=== PATIENT | female | born 1985 | race Caucasian/White ===

== ENCOUNTER 2020-05-08 14:57 | Emergency (ER) | payer OTHER ==
[2020-05-08] MEDS ORDERED: ONDANSETRON ODT 4 MG TABLET TL STA (15:33)
[2020-05-08] MEDS ORDERED: MECLIZINE 12.5 MG TABLET PO STA (15:33)
--- NOTE | 2020-05-08 15:37 | ED Physician Documentation ---
History of Present Illness - Stated complaint Stated Complaint: DIZZINESS - Chief complaint Chief Complaint: Neuro - History obtained from History obtained from: Patient - History of Present Illness Timing: How many days ago (4) Pain level max: 0 Pain level now: 0 - Additonal information Additional information: 34-year-old female presents to the emergency department stating that she has felt dizzy today. She describes it as the room spinning. Worse with movement, better with rest. Also better with her eyes closed. No recent illness. No medication changes. No headache. No chest pain. No shortness of breath. Does have a history of factor V Leiden deficiency. She is on aspirin for this. Denies any possibility of . Review of Systems Constitutional: denies: Fever, Chills Respiratory: denies: Cough GI: denies: Vomiting, Diarrhea Skin: denies: Rash Musculoskeletal: denies: Neck pain, Back pain Neurologic: denies: Focal weakness, Numbness, Confused, Altered mental status, Headache, Head injury, LOC PD PAST MEDICAL HISTORY - Past Medical History Past Medical History: Yes - Present Medications Home Medications: Ambulatory Orders Medication Instructions Recorded Confirmed Meclizine HCl [Antivert] 25 - 50 mg PO Q6H PRN #30 tab 05/08/20 Ondansetron Odt [Zofran] 4 mg TL Q6H PRN #10 tab 05/08/20 - Allergies Allergies/Adverse Reactions: Allergies Allergy/AdvReac Type Severity Reaction Status Date / Time ampicillin Allergy Rash Verified 05/08/20 15:04 - Social History Does the pt smoke?: No Smoking Status: Never smoker Does the pt drink ETOH?: No Does the pt have substance abuse?: No - Immunizations Immunizations are current?: Yes - POLST Patient has POLST: No PD ED PE NORMAL - Vitals Vital signs reviewed: Yes - General General: Alert and oriented X 3, No acute distress, Well developed/nourished - HEENT HEENT: PERRL, EOMI, Ears normal, Moist mucous membranes, Pharynx benign, Other (Positive Hallpike to the right. 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 Normal gait) Eye Opening: Spontaneous Motor: Obeys Commands Verbal: Oriented GCS Score: 15 - Psych Psych: Normal mood, Normal affect Results - Vitals Vitals: Vital Signs - 24 hr 05/08/20 05/08/20 15:00 15:52 Temperature 36.4 C L 36.8 C Heart Rate 83 66 Respiratory 17 14 Rate Blood Pressure 158/90 H 128/65 O2 Saturation 99 100 Oxygen O2 Source Room air PD MEDICAL DECISION MAKING - ED course Complexity details: considered differential, d/w patient ED course: 34-year-old female presents to the emergency department what appears to be vertigo. She is positive for Hallpike on the right. Given meclizine. Feels better. Ambulating well. NIH stroke scale of 0. Normal gait. Normal cerebellar test. No evidence of stroke, tumor, hemorrhage. Patient counseled regarding signs and symptoms for which I believe and urgent re-evaluation would be necessary. Patient with good understanding of and agreement to plan and is comfortable going home at this time This document was made in part using voice recognition software. While efforts are made to proofread this document, sound alike and grammatical errors may occur. Departure - Departure Disposition: 01 Home, Self Care Clinical Impression: Vertigo Condition: Good Instructions: ED Vertigo Unspecified Follow-Up: your,doctor in 1 week [Other] Prescriptions: Meclizine HCl [Antivert] 25 - 50 mg PO Q6H PRN #30 tab PRN Reason: Vertigo Ondansetron Odt [Zofran] 4 mg TL Q6H PRN #10 tab PRN Reason: Nausea / Vomiting Comments: Follow-up with your doctor for further care. Return if you worsen. You can try the Bozena or half somersault maneuver at home to help reposition the otolith in your ear. These maneuvers can be found on [employer]. Forms: Activity restrictions Discharge Date/Time: 05/08/20 15:54
[2020-05-08 15:53] VITALS: BP 128/65
== END 2020-05-08 15:54 | disposition home or self-care (01) ==
LOC: ED 14:57
DX: R42 Dizziness and giddiness (principal); D68.51 Activated protein C resistance; Z79.82 Long term (current) use of aspirin
CPT/HCPCS: 99282; 99284; A9270; Q0162

== ENCOUNTER 2021-04-08 13:28 | Emergency (ER) | payer OTHER ==
[2021-04-08 14:06] LABS: BASOPHILS % (AUTO) 0.2 %; EOSINOPHILS # (AUTO) 0.1 10^3/uL (0.0-0.7); EOSINOPHILS % (AUTO) 0.7 %; HCT - HEMATOCRIT 43.1 % (37.0-47.0); HGB - HEMOGLOBIN 14.7 g/dL (12.0-16.0); LYMPHOCYTES # (AUTO) 1.9 10^3/uL (1.5-3.5); LYMPHOCYTES % (AUTO) 21.9 %; MEAN CORPUSCULAR HEMOGLOBIN 31.7 pg (27.0-31.0); MEAN CORPUSCULAR HGB CONC 34.1 g/dL (32.0-36.0); MEAN CORPUSCULAR VOLUME 93.1 fL (81.0-99.0); MEAN PLATELET VOLUME 8.9 fL (7.9-10.8); MONOCYTES # (AUTO) 0.6 10^3/uL (0.0-1.0); MONOCYTES % (AUTO) 7.1 %; NEUTROPHILS # (AUTO) 5.9 10^3/uL (1.5-6.6); PLT - PLATELET COUNT 240 10^3/uL (130-450); RED BLOOD COUNT 4.63 10^6/uL (4.20-5.40); RED CELL DISTRIBUTION WIDTH 11.9 % (12.0-15.0); WHITE BLOOD COUNT 8.4 x10^3/uL (4.8-10.8)
[2021-04-08 14:22] LABS: ALBUMIN 4.5 g/dL (3.2-5.5); ALBUMIN/GLOBULIN RATIO 1.3 (1.0-2.2); BILIRUBIN,TOTAL 1.3 mg/dL (0.2-1.0); CALCIUM 9.6 mg/dL (8.5-10.3); CREATININE 0.8 mg/dL (0.4-1.0); POTASSIUM 3.9 mmol/L (3.5-5.0); TOTAL PROTEIN 7.9 g/dL (6.7-8.2)
[2021-04-08 14:50] LABS: BILIRUBIN,URINE NEGATIVE (NEGATIVE); GLUCOSE, URINE (UA) NEGATIVE (NEGATIVE); KETONES,URINE (UA) NEGATIVE (NEGATIVE); LEUKOCYTE ESTERASE, URINE NEGATIVE (NEGATIVE); NITRITE,URINE NEGATIVE (NEGATIVE); OCCULT BLOOD,URINE NEGATIVE (NEGATIVE); PROTEIN,URINE NEGATIVE (NEGATIVE); UROBILINOGEN,URINE 0.2 (NORMAL) E.U./dL (NORMAL)
[2021-04-08 14:53] LABS: CLARITY,URINE CLEAR (CLEAR); HCG UR QUAL NEGATIVE
--- NOTE | 2021-04-08 15:05 | ED Physician Documentation ---
History of Present Illness - Stated complaint Stated Complaint: R HIP PX - Chief complaint Chief Complaint: Abd Pain - History obtained from History obtained from: Patient - History of Present Illness Timing: How many days ago (3) Pain level max: 5 Pain level now: 0 - Additonal information Additional information: Patient is a 35-year-old female who presents to the emergency department with right flank pain. Ongoing for the past 2 to 3 days. Intermittent. She states it is a sharp pain. She states it recurs every few minutes. She feels like a stabbing sensation. Has never had similar symptoms previously. She states it is worse with movement and better with rest. No urinary symptoms no fevers. No chills. Denies any possibility of . Denies any trauma or new activities. Review of Systems Ten Systems: 10 systems reviewed and negative Constitutional: denies: Fever, Chills Nose: denies: Rhinorrhea / runny nose, Congestion Respiratory: denies: Cough GI: denies: Abdominal Pain, Nausea, Vomiting, Constipation, Diarrhea, Hematemesis, Bloody / black stool : denies: Dysuria, Frequency, Hesitancy, Hematuria, Now EGA Skin: denies: Rash Musculoskeletal: denies: Neck pain, Back pain Neurologic: denies: Headache PD PAST MEDICAL HISTORY - Past Medical History Past Medical History: No - Past Surgical History Past Surgical History: No - Present Medications Home Medications: Ambulatory Orders Medication Instructions Recorded Confirmed Meclizine HCl [Antivert] 25 - 50 mg PO Q6H PRN #30 tab 05/08/20 Ondansetron Odt [Zofran] 4 mg TL Q6H PRN #10 tab 05/08/20 Ibuprofen [Motrin] 800 mg PO Q8H PRN #30 tablet 04/08/21 - Allergies Allergies/Adverse Reactions: Allergies Allergy/AdvReac Type Severity Reaction Status Date / Time ampicillin Allergy Rash Verified 04/08/21 13:51 - Living Situation Living Situation: reports: With family Living Arrangement: reports: At home - Social History Does the pt smoke?: No Smoking Status: Never smoker Does the pt drink ETOH?: No Does the pt have substance abuse?: No - Immunizations Immunizations are current?: Yes - POLST Patient has POLST: No PD ED PE NORMAL - Vitals Vital signs reviewed: Yes - General General: Alert and oriented X 3, No acute distress, Well developed/nourished - HEENT HEENT: Moist mucous membranes - Neck Neck: Supple, no meningeal sign - Cardiac Cardiac: RRR - Respiratory Respiratory: No respiratory distress, Clear bilaterally - Abdomen Abdomen: Soft, Non tender, Non distended - Back Back: No CVA TTP, No spinal TTP (No midline tenderness to palpation or percussion. No step-off or deformity. No spasm.) - Derm Derm: Warm and dry - Extremities Extremities: No edema, No calf tenderness / cord - Neuro Neuro: Alert and oriented X 3, No motor deficit, No sensory deficit, Other (Normal bilateral lower extremity patellar and ankle jerk reflexes. Normal great toe extension bilaterally. no saddle anesthesia) - Psych Psych: Normal mood, Normal affect Results - Vitals Vitals: Vital Signs - 24 hr 04/08/21 04/08/21 13:46 17:20 Temperature 36.5 C 36.5 C Heart Rate 81 81 Respiratory 15 14 Rate Blood Pressure 146/89 H 147/90 H O2 Saturation 99 100 Oxygen O2 Source Room air - Labs Labs: Laboratory Tests 04/08/21 04/08/21 04/08/21 14:01 14:01 14:27 WBC 8.4 RBC 4.63 Hgb 14.7 Hct 43.1 MCV 93.1 MCH 31.7 H MCHC 34.1 RDW 11.9 L Plt Count 240 MPV 8.9 Neut # (Auto) 5.9 Lymph # (Auto) 1.9 Mineral # (Auto) 0.6 Eos # (Auto) 0.1 Baso # (Auto) 0.0 Absolute Nucleated RBC 0.00 Nucleated RBC % 0.0 Sodium 135 Potassium 3.9 Chloride 99 L Carbon Dioxide 25 Anion Gap 11.0 BUN 14 Creatinine 0.8 Estimated GFR (MDRD) 81 L Glucose 116 H Calcium 9.6 Total Bilirubin 1.3 H AST 18 ALT 24 Alkaline Phosphatase 58 Total Protein 7.9 Albumin 4.5 Globulin 3.4 Albumin/Globulin Ratio 1.3 Lipase 35 Urine Color YELLOW Urine Clarity CLEAR Urine pH 6.0 Ur Specific [place] 1.010 Urine Protein NEGATIVE Urine Glucose (UA) NEGATIVE Urine Ketones NEGATIVE Urine Occult Blood NEGATIVE Urine Nitrite NEGATIVE Urine Bilirubin NEGATIVE Urine Urobilinogen 0.2 (NORMAL) Ur Leukocyte Esterase NEGATIVE Ur Microscopic Review NOT INDICATED Urine Culture Comments NOT INDICATED Urine HCG, Qual NEGATIVE - Rads (name of study) CT abd/pelvis Radiology: Final report received, EMP read contemporaneously, See rad report PD MEDICAL DECISION MAKING - ED course Complexity details: reviewed results, re-evaluated patient, considered differential, d/w patient ED course: 35-year-old female with flank pain of unclear etiology. She does have a very large right-sided renal cyst, up to 6.9 cm. This could be causing her pain. No significant lab abnormalities. No urine. We will have her follow-up with her doctor for further management of the renal cyst. This may be amenable to IR drainage. Patient counseled regarding signs and symptoms for which I believe and urgent re-evaluation would be necessary. Patient with good understanding of and agreement to plan and is comfortable going home at this time This document was made in part using voice recognition software. While efforts are made to proofread this document, sound alike and grammatical errors may occur. IMPRESSION: No evidence of hydronephrosis or urinary tract calcifications. Large right renal cyst measuring up to 6.9 cm. Small amount of fluid within the pelvis, likely physiologic. Diverticulosis. Departure - Departure Disposition: 01 Home, Self Care Clinical Impression: Renal cyst, Flank pain Condition: Good Instructions: Simple Renal Cysts Follow-Up: SHONA ROBERSON DO [Primary Care Provider] - Within 1 week Prescriptions: Ibuprofen [Motrin] 800 mg PO Q8H PRN #30 tablet PRN Reason: PAIN &/OR FEVER Comments: Your laboratory testing and urinalysis did not show any acute abnormalities. Your CT scan does show a 7 cm renal cyst, when these become that large they can cause pain. Please follow-up with your doctor for further care. Return if you worsen Your prescription was sent to [facility] in [place]. Discharge Date/Time: 04/08/21 17:32
--- NOTE | 2021-04-08 17:01 | CT Report ---
PROCEDURE: Abdomen/Pelvis WO INDICATIONS: R flank pain TECHNIQUE: Noncontrast 5 mm thick sections acquired from the diaphragms to the symphysis. 5 mm coronal and sagi ttal reformats were then performed. For radiation dose reduction, the following was used: automated exposure control, adjustment of mA and/or kV according to patient size. COMPARISON: None. FINDINGS: Image quality: Excellent. ABDOMEN: Lung bases: Lung bases are clear. Heart size is normal. Solid organs: Liver and spleen are normal in size. Gallbladder unremarkable Pancreas is normal in contours. No adrenal nodules. Kidneys are normal in size, without hydronephrosis or nephrolithiasis . There is a large simple appearing right renal cysts measuring up to 6.9 cm in greatest diameter. N o adjacent inflammation. Ureters are normal in course and caliber. Peritoneum and bowel: Stomach and small bowel are unremarkable. No evidence of obstruction. No wall t hickening or surrounding inflammation. Colonic diverticula. No wall thickening or surrounding inflamm ation to suggest diverticulitis. No pneumoperitoneum. Nodes and vessels: No retroperitoneal or mesenteric adenopathy by size criteria. Aorta and inferior vena cava are normal in caliber. Miscellaneous: Small fat-containing periumbilical hernia. PELVIS: Genitourinary: Bladder wall thickness is normal. Small amount of pelvic free fluid. Miscellaneous: No inguinal hernias or adenopathy. Bones: No suspicious bony lesions. No vertebral body compression fractures. IMPRESSION: No evidence of hydronephrosis or urinary tract calcifications. Large right renal cyst measuring up to 6.9 cm. Small amount of fluid within the pelvis, likely physiologic. Diverticulosis. Reviewed by: Urban Venegas DO on 04/08/2021 3:59 PM [facility] Approved by: Urban Venegas DO on 04/08/2021 3:59 PM [facility] Station ID: [id number]
[2021-04-08] MEDS ORDERED: KETOROLAC 60 MG/2 ML VIAL IM STA (17:12)
[2021-04-08 17:20] VITALS: BP 147/90
== END 2021-04-08 17:32 | disposition home or self-care (01) ==
LOC: ED 13:28
DX: N28.1 Cyst of kidney, acquired (principal); R10.9 Unspecified abdominal pain
CPT/HCPCS: 36415; 80053; 81001; 81003; 81025; 83690; 85025; 87086; 96372; 99282; 99284

== ENCOUNTER 2022-02-10 08:00 | Outpatient (CLI) | payer OTHER ==
[2022-02-10 22:28] LABS: BACTERIAL VAGINOSIS DNA POSITIVE (NEGATIVE); CANDIDA GLABRATA DNA NEGATIVE (NEGATIVE); CANDIDA GROUP DNA POSITIVE (NEGATIVE); CANDIDA KRUSEI DNA NEGATIVE (NEGATIVE); TRICHOMONAS VAGINALIS DNA NEGATIVE (NEGATIVE)
== END 2022-02-10 23:59 | disposition home or self-care (01) ==
LOC: LAB 08:00
PROVIDERS: ATTEND Registered Nurse
DX: R30.0 Dysuria (principal); N89.8 Other specified noninflammatory disorders of vagina
CPT/HCPCS: 81514; 87086

== ENCOUNTER 2022-03-13 19:07 | Outpatient (CLI) | payer OTHER ==
[2022-03-13 23:07] LABS: BACTERIAL VAGINOSIS DNA NEGATIVE (NEGATIVE); CANDIDA GLABRATA DNA NEGATIVE (NEGATIVE); CANDIDA GROUP DNA POSITIVE (NEGATIVE); CANDIDA KRUSEI DNA NEGATIVE (NEGATIVE); TRICHOMONAS VAGINALIS DNA NEGATIVE (NEGATIVE)
[2022-03-14 00:28] LABS: CHLAMYDIA TRACHOMATIS DNA NEGATIVE (NEGATIVE); NEISSERIA GONORRHOEAE DNA NEGATIVE (NEGATIVE)
== END 2022-03-13 23:59 | disposition home or self-care (01) ==
LOC: LAB.N 19:07
PROVIDERS: ATTEND Physician Assistant
DX: R30.0 Dysuria (principal)
CPT/HCPCS: 81514; 87077; 87086; 87491; 87591; 87661

== ENCOUNTER 2022-04-30 17:43 | Outpatient (CLI) | payer OTHER | END 2022-04-30 23:59 | disposition home or self-care (01) | LOC: LAB.N 17:43 | PROVIDERS: ATTEND Nurse Practitioner | DX: R30.0 Dysuria (principal) | CPT/HCPCS: 87086; 87101 ==

== ENCOUNTER 2022-06-12 17:06 | Emergency (ER) | payer OTHER ==
[2022-06-12 17:16] VITALS: BP 147/80
[2022-06-12 17:47] LABS: GLUCOSE, URINE (UA) NEGATIVE (NEGATIVE); KETONES,URINE (UA) NEGATIVE (NEGATIVE); LEUKOCYTE ESTERASE, URINE NEGATIVE (NEGATIVE); NITRITE,URINE POSITIVE (NEGATIVE); OCCULT BLOOD,URINE NEGATIVE (NEGATIVE); PROTEIN,URINE 30 mg/dL (NEGATIVE); UROBILINOGEN,URINE 4 E.U./dL (NORMAL)
[2022-06-12 17:56] LABS: BILIRUBIN,URINE NEGATIVE (NEGATIVE); CLARITY,URINE CLEAR (CLEAR); HCG UR QUAL NEGATIVE; ICTOTEST,URINE NEGATIVE
--- NOTE | 2022-06-12 18:02 | ED Physician Documentation ---
PD HPI FEMALE - Stated complaint Stated Complaint: FEMALE , BACK PAIN - Chief complaint Chief Complaint: Abd Pain - History obtained from History obtained from: Patient - History of Present Illness Pain level max: 7 Pain level max: 5 Associated symptoms: No: Fever, Pelvic pain, Vaginal pain, Vaginal bleeding Contributing factors: No: - Additional information Additional information: Patient is a 28-year-old female who presents to the emergency department stating that she has UTIs about once per month. She states that she is starting to get some pain in the right flank as well. No fevers. No chills. Worse with urination, nothing makes it better. She took an Azo prior to arrival. She does have a history of a right renal cyst. She states that this was drained in the last year. Denies any possibility of . No STD exposure. No vaginal bleeding or discharge Feels similar to prior UTIs Review of Systems Constitutional: denies: Fever, Chills GI: denies: Vomiting, Diarrhea : reports: Dysuria, Frequency, Hesitancy. denies: Hematuria Skin: denies: Rash Musculoskeletal: denies: Neck pain PD PAST MEDICAL HISTORY - Past Medical History Past Medical History: Yes Other Past Medical History: Frequent UTIs - Past Surgical History Past Surgical History: No - Present Medications Home Medications: Ambulatory Orders Medication Instructions Recorded Confirmed Meclizine HCl [Antivert] 25 - 50 mg PO Q6H PRN #30 tab 05/08/20 Ondansetron Odt [Zofran] 4 mg TL Q6H PRN #10 tab 05/08/20 Ibuprofen [Motrin] 800 mg PO Q8H PRN #30 tablet 04/08/21 Cefdinir 300 mg PO BID #14 cap 06/12/22 Phenazopyridine HCl [Pyridium] 200 mg PO TID PRN #6 tablet 06/12/22 - Allergies Allergies/Adverse Reactions: Allergies Allergy/AdvReac Type Severity Reaction Status Date / Time ampicillin Allergy Rash Verified 06/12/22 17:12 - Living Situation Living Situation: reports: With family Living Arrangement: reports: At home - Social History Does the pt smoke?: No Smoking Status: Never smoker Does the pt drink ETOH?: No Does the pt have substance abuse?: No - Immunizations Immunizations are current?: Yes - POLST Patient has POLST: No PD ED PE NORMAL - Vitals Vital signs reviewed: Yes - General General: Alert and oriented X 3, No acute distress - HEENT HEENT: Moist mucous membranes - Neck Neck: Supple, no meningeal sign - Cardiac Cardiac: RRR, No murmur, Strong equal pulses - Respiratory Respiratory: No respiratory distress, Clear bilaterally - Abdomen Abdomen: Soft, Non tender, Non distended - Back Back: No CVA TTP, No spinal TTP - Derm Derm: Warm and dry - Neuro Neuro: Alert and oriented X 3 - Psych Psych: Normal mood, Normal affect Results - Vitals Vitals: Vital Signs - 24 hr 06/12/22 06/12/22 17:13 17:16 Temperature 36.8 C 36.8 C Heart Rate 80 80 Respiratory 16 16 Rate Blood Pressure 147/80 H 147/80 H O2 Saturation 96 96 Oxygen O2 Source Room air - Labs Labs: Laboratory Tests 06/12/22 17:25 Urine Color ORANGE Urine Clarity CLEAR Urine pH 6.0 Ur Specific [place] 1.020 Urine Protein 30 H Urine Glucose (UA) NEGATIVE Urine Ketones NEGATIVE Urine Occult Blood NEGATIVE Urine Nitrite POSITIVE H Urine Bilirubin NEGATIVE Urine Urobilinogen 4 H Ur Leukocyte Esterase NEGATIVE Urine RBC 0-5 Urine WBC 11-25 H Ur Squamous Epith Cells FEW Squamous Urine Bacteria Few Ur Microscopic Review INDICATED Urine Culture Comments INDICATED Urine HCG, Qual NEGATIVE PD Medical Decision Making - ED course Complexity details: reviewed results, re-evaluated patient, considered differential, d/w patient ED course: 36-year-old female with a UTI. We will place on antibiotics for home. She is having some flank pain, possible very early pyelonephritis, therefore we will extend her treatment to 7 days. Afebrile. No nausea or vomiting. We will have her follow-up with her doctor for further care. Patient is well-appearing, nontoxic. Afebrile. Urinalysis shows positive nitrites and positive white blood cells along with bacteria consistent with UTI. Patient counseled regarding signs and symptoms for which I believe and urgent re-evaluation would be necessary. Patient with good understanding of and agreement to plan and is comfortable going home at this time This document was made in part using voice recognition software. While efforts are made to proofread this document, sound alike and grammatical errors may occur. Departure - Departure Disposition: 01 Home, Self Care Clinical Impression: UTI (urinary tract infection) Qualifiers: Urinary tract infection type: acute cystitis Hematuria presence: without hematuria Qualified Code(s): N30.00 - Acute cystitis without hematuria Condition: Good Instructions: ED UTI Cystitis Female Follow-Up: VIOLA CHANDRA MD [Primary Care Provider] - Within 1 week Prescriptions: Cefdinir 300 mg PO BID #14 cap Phenazopyridine HCl [Pyridium] 200 mg PO TID PRN #6 tablet PRN Reason: dysuria Comments: Your prescriptions were sent to [facility] in [place]. Please take all antibiotics until gone. Please follow-up with your doctor for further care. Return if you worsen. Discharge Date/Time: 06/12/22 18:07
[2022-06-12] MEDS: NITROFURANTOIN MACRO 100 MG CAPSULE PO STA (18:06)
[2022-06-12 18:18] LABS: BACTERIA,URINE Few /HPF (None Seen); RBC,URINE 0-5 /HPF (0-5); SQUAMOUS EPITHELIAL CELL,UR FEW Squamous (<= Few)
== END 2022-06-12 18:07 | disposition home or self-care (01) ==
LOC: ED 17:06
DX: N30.00 Acute cystitis without hematuria (principal); Z87.440 Personal history of urinary (tract) infections; Z88.1 Allergy status to other antibiotic agents
CPT/HCPCS: 81001; 81025; 87077; 87086; 99283; A9270; 81003

== ENCOUNTER 2022-06-25 08:00 | Outpatient (CLI) | payer OTHER | END 2022-06-25 23:59 | disposition home or self-care (01) | LOC: LAB.N 08:00 | PROVIDERS: ATTEND Physician Assistant | DX: R30.0 Dysuria (principal) | CPT/HCPCS: 87086 ==

== ENCOUNTER 2022-07-09 13:04 | Emergency (ER) | payer OTHER ==
[2022-07-09 13:10] VITALS: BP 150/90
[2022-07-09] MEDS ORDERED: PHENAZOPYRIDINE 100 MG TABLET PO STA (13:20)
--- NOTE | 2022-07-09 13:21 | ED Physician Documentation ---
History of Present Illness - Stated complaint Stated Complaint: FEMALE - Chief complaint Chief Complaint: Abd Pain - History obtained from History obtained from: Patient - Additonal information Additional information: 36-year-old woman who has been having monthly UTIs for the last 6 months or so. She developed burning dysuria yesterday. Because of the frequency of her UTIs she has a pending referral to urology. She denies flank pain or fevers. No hematuria. PD PAST MEDICAL HISTORY - Past Surgical History Past Surgical History: No - Present Medications Home Medications: Ambulatory Orders Medication Instructions Recorded Confirmed Amitriptyline [Elavil] 25 mg PO HS #30 tablet 07/09/22 Aspirin [Aspirin EC] 81 mg PO DAILY 07/09/22 07/09/22 Phenazopyridine HCl [Pyridium] 200 mg PO TID PRN #20 tablet 07/09/22 - Allergies Allergies/Adverse Reactions: Allergies Allergy/AdvReac Type Severity Reaction Status Date / Time ampicillin Allergy Rash Verified 07/09/22 13:07 - Social History Does the pt smoke?: No Smoking Status: Never smoker Does the pt drink ETOH?: No Does the pt have substance abuse?: No - Immunizations Immunizations are current?: Yes - POLST Patient has POLST: No PD ED PE NORMAL - Vitals Vital signs reviewed: Yes - General General: Alert and oriented X 3, No acute distress - Abdomen Abdomen: Normal bowel sounds, Soft, Non tender - Back Back: No CVA TTP - Neuro Neuro: Alert and oriented X 3, Normal speech Results - Vitals Vitals: Vital Signs - 24 hr 07/09/22 13:07 Temperature 36.8 C Heart Rate 66 Respiratory 16 Rate Blood Pressure 150/90 H O2 Saturation 100 Oxygen O2 Source Room air - Labs Labs: Laboratory Tests 07/09/22 13:16 Urine Color YELLOW Urine Clarity CLEAR Urine pH 6.5 Ur Specific [place] 1.020 Urine Protein NEGATIVE Urine Glucose (UA) NEGATIVE Urine Ketones NEGATIVE Urine Occult Blood NEGATIVE Urine Nitrite NEGATIVE Urine Bilirubin NEGATIVE Urine Urobilinogen 0.2 (NORMAL) Ur Leukocyte Esterase NEGATIVE Ur Microscopic Review NOT INDICATED Urine Culture Comments NOT INDICATED Urine HCG, Qual NEGATIVE PD Medical Decision Making - ED course ED course: 36-year-old woman with frequent UTI symptoms, but review of the chart shows that she only has a positive urine culture a minority of the time. Wonder if she might have something like interstitial cystitis. She is seeing a urologist next month and she is wanting to try a specific therapy such as amitriptyline in the meantime. Departure - Departure Disposition: 01 Home, Self Care Clinical Impression: Dysuria Condition: Good Record reviewed to determine appropriate education?: Yes Instructions: ED Dysuria Uncertain Cause Prescriptions: Amitriptyline [Elavil] 25 mg PO HS #30 tablet Phenazopyridine HCl [Pyridium] 200 mg PO TID PRN #20 tablet PRN Reason: dysuria Comments: Your urinalysis is normal today, combined with the fact that Some of the previous times that we thought she had bladder infections the urine cultures were negative would suggest an alternative diagnosis such as interstitial cystitis. You should discuss this when you see the urologist next month. In the meantime you can take the Pyridium and trial the amitriptyline if you would like, or you can wait until you see the urologist. Return if worse.
[2022-07-09 13:25] LABS: BILIRUBIN,URINE NEGATIVE (NEGATIVE); GLUCOSE, URINE (UA) NEGATIVE (NEGATIVE); KETONES,URINE (UA) NEGATIVE (NEGATIVE); LEUKOCYTE ESTERASE, URINE NEGATIVE (NEGATIVE); NITRITE,URINE NEGATIVE (NEGATIVE); OCCULT BLOOD,URINE NEGATIVE (NEGATIVE); PH,URINE 6.5 PH (5.0-7.5); PROTEIN,URINE NEGATIVE (NEGATIVE); UROBILINOGEN,URINE 0.2 (NORMAL) E.U./dL (NORMAL)
[2022-07-09 13:27] LABS: CLARITY,URINE CLEAR (CLEAR); HCG UR QUAL NEGATIVE
== END 2022-07-09 14:01 | disposition home or self-care (01) ==
LOC: ED 13:04
DX: R30.0 Dysuria (principal)
CPT/HCPCS: 81003; 81025; 99283; A9270; 81001; 87086

== ENCOUNTER 2022-09-19 18:05 | Emergency (ER) | payer OTHER ==
[2022-09-19 20:35] VITALS: BP 144/96
--- NOTE | 2022-09-19 20:39 | ED Physician Documentation ---
History of Present Illness - Stated complaint Stated Complaint: LT SWOLLEN LEG - Chief complaint Chief Complaint: Ext Problem - History obtained from History obtained from: Patient - Additonal information Additional information: 37-year-old female with a past medical history of DVT in 2010 secondary to factor V Leiden deficiency and control use presents with left leg swelling for the last several days. She also has a shooting pain in the left calf that is intermittent and radiates up the leg. She has not noted any redness, denies any injury to the leg, no increased activity. She is on her feet a lot during the day but this is not different than her normal routine. She has not any chest pain or shortness of breath, no fever or chills. Patient took a anticoagulation for about 6 months with her last DVT and then it was stopped and she has been on aspirin daily but no other anticoagulation. PD PAST MEDICAL HISTORY - Past Medical History Past Medical History: Yes : Chronic bladder infection Other Past Medical History: Factor V Leiden, left leg DVT - Past Surgical History Past Surgical History: No - Present Medications Home Medications: Ambulatory Orders Medication Instructions Recorded Confirmed Amitriptyline [Elavil] 25 mg PO HS #30 tablet 07/09/22 Aspirin [Aspirin EC] 81 mg PO DAILY 07/09/22 07/09/22 Phenazopyridine HCl [Pyridium] 200 mg PO TID PRN #20 tablet 07/09/22 Rivaroxaban [Xarelto] 15 mg PO BID #42 tablet 09/19/22 - Allergies Allergies/Adverse Reactions: Allergies Allergy/AdvReac Type Severity Reaction Status Date / Time ampicillin Allergy Rash Verified 09/19/22 18:08 - Social History Does the pt smoke?: No Smoking Status: Never smoker Does the pt drink ETOH?: No Does the pt have substance abuse?: No - Immunizations Immunizations are current?: Yes - POLST Patient has POLST: No PD ED PE NORMAL - Vitals Vital signs reviewed: Yes - General General: Alert and oriented X 3, No acute distress, Well developed/nourished - HEENT HEENT: Atraumatic, Moist mucous membranes - Cardiac Cardiac: RRR, No murmur - Respiratory Respiratory: No respiratory distress, Clear bilaterally - Derm Derm: Normal color, Warm and dry, No rash - Extremities Extremities: Other (Left leg is swollen, tight, there is tenderness of the left calf, no erythema, no skin injury. Pulses are 2+ bilaterally.No right-sided swelling) Results - Vitals Vitals: Vital Signs - 24 hr 09/19/22 09/19/22 18:08 20:32 Temperature 36.5 C Heart Rate 90 72 Respiratory 16 18 Rate Blood Pressure 140/80 H 144/96 H O2 Saturation 99 100 Oxygen O2 Source Room air - Rads (name of study) No standard instances Relevant Findings:: Prelim report reviewed PD Medical Decision Making - ED course Complexity details: reviewed results, re-evaluated patient, considered differential, d/w patient ED course: 37-year-old female presents with left leg swelling. She does have a history of DVT in the same leg though many years ago, no is no longer on anticoagulation. She has tenderness in swelling on physical exam, concern for DVT. We obtained ultrasound which preliminary read shows questionable filling defect and may be an old DVT residual versus new evolving defect but no DVT in visualized portions. I discussed these findings with patient and discussed options including repeating ultrasound in 2 weeks to see if there has been any change versus starting anticoagulation now and following up with PCP and repeating ultrasound again in 2 to 3 weeks. Though no clear DVT on ultrasound today, patient certainly has the symptoms and history to suggest she is developing a DVT therefore after discussion with the patient, she would like to start anticoagulation now pending follow-up ultrasound with her PCP. We will start her on Xarelto, 15 mg twice a day for the next 3 weeks and I advised that She will need to follow-up with her PCP within that timeframe in order to get additional DVT treatment if indicated (xarelton 20mg daily thereafter). I discussed return precautions in detail with the patient. Departure - Departure Disposition: 01 Home, Self Care Clinical Impression: Left leg swelling Condition: Good Instructions: ED Leg Swelling Unilateral Prescriptions: Rivaroxaban [Xarelto] 15 mg PO BID #42 tablet Comments: No obvious DVT at this time. There is residual of an old DVT. We are however going to start you on anticoagulation until you follow-up given her history of factor V Leiden. Recommend repeat ultrasound in 2 to 3 weeks which can be done in outpatient basis. Discharge Date/Time: 09/19/22 20:42
--- NOTE | 2022-09-19 22:02 | Ultrasound Report ---
PROCEDURE: Duplex Ext Veins Left INDICATIONS: LLE swelling, h/o DVT TECHNIQUE: Real-time imaging, as well as color and pulse Doppler interrogation, were performed of the lower extr emity deep veins from the inguinal ligament to the popliteal fossa. COMPARISON: None. FINDINGS: There are indistinct linear filling defects within the left proximal to distal superficial femoral ve in suggestive of nonocclusive thrombus. The findings may be nonacute given the linear appearance. IMPRESSION: 1. Suspected nonocclusive thrombus within the left superficial femoral vein of indeterminate acuity. Findings reported to Dr. Fam by the chief medical technologist at the conclusion of the study. Reviewed by: Jay Barraza MD on 09/19/2022 10:00 PM PDT Approved by: Jay Barraza MD on 09/19/2022 10:00 PM PDT Station ID: [id number]
== END 2022-09-19 20:42 | disposition home or self-care (01) ==
LOC: ED 18:05
DX: R22.42 Localized swelling, mass and lump, left lower limb (principal); Z86.718 Personal history of other venous thrombosis and embolism; D68.51 Activated protein C resistance
CPT/HCPCS: 99283; 99284